=== PATIENT | male | born 1990 | race Caucasian/White ===

== ENCOUNTER 2019-05-17 15:09 | Emergency (ER) | payer SELFPAY ==
[~2019-05-17] VITALS: Ht 175.3 cm; Wt 91.0 kg
[2019-05-17] MEDS ORDERED: KETOROLAC 60MG/2ML VIAL IM STA (16:33)
[2019-05-17] MEDS ORDERED: AMOXICILLIN/POTASSIUM CLAVULANATE 875/125MG TAB PO ONE (16:45)
[2019-05-17 18:00] VITALS: BP 133/69
== END 2019-05-17 18:00 | disposition home or self-care (01) ==
LOC: ER 15:09
DX: K04.7 Periapical abscess without sinus (principal); F17.210 Nicotine dependence, cigarettes, uncomplicated
CPT/HCPCS: 96372; 99283; J1885